=== PATIENT | female | born 1955 | race Caucasian/White ===

== ENCOUNTER 2018-07-15 09:02 | Day surgery (SDC) | payer BC ==
[2018-07-12 13:01] VITALS: BMI 36.6
[~2018-07-15 09:02] MED LIST: ceFAZolin SODIUM 1 GM VIAL IVPB ONE
--- NOTE | 2018-07-15 09:59 | HP ---
History & Physical Update - History History: No Change (Endometrial polyp(s)) - Physical Physical: No Change - Assessment Assessment: No Change - Plan Plan: No Change (Hysteroscopy, polypectomy, D&C)
[2018-07-15] MEDS ORDERED: MIDAZOLAM HCL 2 MG/2 ML SINGLE DOSE VIAL ONE (10:02)
[2018-07-15] MEDS ORDERED: LIDOCAINE HCL/PF 2% SDV 5ML VIAL ONE (10:02)
[2018-07-15] MEDS ORDERED: PROPOFOL 20 ML ONE (10:02)
[2018-07-15] MEDS ORDERED: DEXAMETHASONE SOD PHOSPHATE 4 MG/1 ML VIAL ONE (10:30)
[2018-07-15] MEDS ORDERED: CLINDAMYCIN PHOSPHATE 900 MG/6 ML VIAL IVPB ONE (10:34)
[2018-07-15] MEDS ORDERED: CLINDAMYCIN PHOSPHATE 600 MG/4 ML VIAL ONE (10:34)
[2018-07-15] MEDS ORDERED: KETOROLAC TROMETHAMINE 30 MG/1 ML VIAL ONE (10:51)
--- NOTE | 2018-07-15 11:11 | OP ---
Operative Note - Note: Operative Date: 07/15/18 Pre-Operative Diagnosis: Endometrial polyp Operation: Hysteroscopy, polypectomy, D&C Findings: Multiple large polyps w/in uterine cavity Post-Operative Diagnosis: Same as Pre-op Surgeon: Long Chavarria Anesthesiologist/BLOCK MACHINE OPERATOR: Delia Juares Anesthesia: General Specimens Removed: Endometrial polyps, endometrial curettings Estimated Blood Loss (mls): 5 Blood Volume Replaced (mls): 0 Fluid Volume Replaced (mls): 600 Operative Report Dictated: Yes
[2018-07-15] MEDS ORDERED: oxyCODONE HCL 5 MG TABLET PO PRN (11:13)
[2018-07-15] MEDS ORDERED: ONDANSETRON 4 MG/2 ML VIAL IVPUSH PRN (11:13)
[2018-07-15] MEDS ORDERED: LACTATED RINGERS SOLUTION 1,000 ML IV SCH (11:15)
[2018-07-15 12:26] VITALS: TEMP 97.4
--- NOTE | 2018-07-15 12:48 | OP ---
DATE OF OPERATION: 07/15/2018 PREOPERATIVE DIAGNOSIS: Endometrial polyps. POSTOPERATIVE DIAGNOSIS: Endometrial polyps. PROCEDURE: Hysteroscopy, polypectomy, dilation and curettage. SURGEON: Jovani Chavarria MD ANESTHESIOLOGIST: Dr. Delia Juares. ANESTHESIA: General. COMPLICATIONS: None. PATHOLOGY: Endometrial polyps, endometrial curettings. IV FLUIDS: 600 mL. ESTIMATED BLOOD LOSS: 5 mL. FINDINGS: Examination under anesthesia revealed a small, anteverted, mobile uterus. No pelvic or adnexal masses were noted. Hysteroscopy revealed multiple endometrial polyps within the uterine cavity. All of the polyps were removed, and the uterine cavity appeared to be within normal limits at the end of the procedure. DESCRIPTION OF PROCEDURE: The patient was met preoperatively. The risks, benefits, and alternatives of surgery were discussed in detail. The consent form reviewed. All questions were answered. We discussed the risks of infection, bleeding, perforation, scarring, pain, need for additional surgery to treat or repair any injuries or complications. The patient verbalized her understanding and requested to proceed with surgery. The patient was brought to the OR with the IV running. She was placed on the surgical table in the supine position. The general anesthesia was achieved without difficulty. The patient was then placed in a dorsal lithotomy position using adjustable Ozzy stirrups. She was examined under anesthesia with the findings as described above. A time-out procedure was conducted as per standard protocol. The patient was then prepped and draped in the usual sterile fashion. A weighted speculum was introduced inside the vagina with good visualization of the cervix. The cervix was grasped with a single-tooth tenaculum. The cervical os did not need to be dilated, and it was noted to be adequate for hysteroscopy. A hysteroscope was introduced into the uterine cavity without complications. Multiple uterine polyps were noted within the endometrial cavity. The polyps ranged in size from approximately 1/2 cm to 3 cm. A hysteroscopic resection was then performed under direct visualization. All of the polyps were excised completely. The hysteroscope was then removed from the uterus. A uterine curettage was performed. All of the tissue was sent to Pathology for evaluation. Once this was completed, good hemostasis was confirmed. All of the instruments were removed from the patient. Sponge, lap, and instrument counts were correct. The patient was returned to supine position. She was then transferred to recovery room in stable condition and awake. JOVANITeresa [id number]
[2018-07-15 13:46] VITALS: BP 135/68; PULSE 63
--- NOTE | 2018-07-17 13:43 | PATH ---
Surgical Pathology Report Patient Name: MUNDO VAIL [facility]. Rec. #: [id number] /Age/Gender: 1955 (Age: 62) / F Account: [id number] Location: [facility] Taken: 07/15/2018 Received: 07/15/2018 Reported: 07/17/2018 Physicians: Long Chavarria M.D. Specimen(s) Received ENDOMETRIAL POLYPS AND CURETTING Clinical History Endometrial polyp, postmenopausal bleeding Final Diagnosis ENDOMETRIAL POLYPS AND CURETTINGS, DILATION AND CURETTAGE: FRAGMENTS OF ENDOMETRIAL POLYP(S), SUPERFICIAL MYOMETRIUM, AND BENIGN CERVICAL TISSUE. Electronically Signed Elisabet Munoz M.D. Gross Description Received in formalin labeled "endometrial polyps and curettings," is a 5.5 x 4.3 x 0.7 cm aggregate of [place], firm to rubbery tissue fragments. The formalin is filtered and the specimen is entirely submitted in 6 cassettes. /07/15/2018 saudi07/15/2018
== END 2018-07-15 13:50 | disposition home or self-care (01) ==
LOC: JASU-SURG 09:02
PROVIDERS: ATTEND Obstetrics & Gynecology
PROC: 0UJD8ZZ Inspection of Uterus and Cervix, Via Natural or Artificial Opening Endoscopic (ICD-10-PCS; 2018-07-15)
PROC: 0UB97ZX Excision of Uterus, Via Natural or Artificial Opening, Diagnostic (ICD-10-PCS; principal; 2018-07-15 10:30)
PROC: 0UDB7ZX Extraction of Endometrium, Via Natural or Artificial Opening, Diagnostic (ICD-10-PCS; 2018-07-15 10:30)
DX: N84.0 Polyp of corpus uteri (principal)
CPT/HCPCS: 88305-TC; 94760